=== PATIENT | female | born 1965 | race African-American/Black ===

== ENCOUNTER 2017-01-20 23:59 | Emergency (ER) | payer OTHER ==
[~2017-01-20] VITALS: Ht 162.6 cm; Wt 61.0 kg
[2017-01-21 04:35] LABS: BASOPHILS % 1.2 % (0.0-2.0); DIFFERENTIAL COMMENT 0; EOSINOPHILS % 5.5 % (0.0-5.0); HEMATOCRIT. 34.8 % (36.0-48.0); HEMOGLOBIN. 10.8 g/dL (12.0-16.0); LYMPHOCYTES % 49.4 % (20.0-50.0); MEAN CORPUSCULAR HEMOGLOBIN 22.5 pg (28.0-32.0); MEAN CORPUSCULAR VOLUME 72.7 fL (81.0-99.0); NEUTROPHILS % 29.9 % (40.0-76.0); PLATELET 282 x1000/uL (130-400); RED BLOOD CELL COUNT 4.79 mill/uL (4.2-5.4); RED CELL DISTRIBUTION WIDTH 19.1 % (11.6-14.6); WHITE BLOOD COUNT 4.9 x1000/uL (4.5-11.0)
[2017-01-21 04:40] LABS: CHLORIDE 113 mEq/L (98-107); INDEX HEMOLYSI 1 (1-3); INDEX ICTERIC 1 (1-4); INDEX LIPEMIC 1 (1-3)
[2017-01-21 04:56] LABS: ALBUMIN 3.4 g/dL (3.4-5.0); ANION GAP 13; CALCIUM 8.2 mg/dL (8.5-10.1); CARBON DIOXIDE 22 mEq/L (21-32); ETHANOL BLOOD 232 mg/dL; LIPASE 258 IU/L (73-393); UREA NITROGEN BLOOD 14 mg/dL (7-21); eGFR > 60 mL/min (>60)
[2017-01-21 05:03] LABS: ACETAMINOPHEN < 2 ug/mL (10-30)
[2017-01-21 05:06] LABS: ALANINE AMINOTRANSFERASE 21 IU/L (13-61)
[2017-01-21 07:23] LABS: CLARITY URINE CLEAR (CLEAR); COLOR URINE YELLOW (YELLOW); GLUCOSE URINE NEGATIVE (NEGATIVE); KETONES URINE NEGATIVE (NEGATIVE); LEUKOCYTE ESTERASE URINE NEGATIVE (NEGATIVE); NITRITE URINE NEGATIVE (NEGATIVE); OCCULT BLOOD URINE NEGATIVE (NEGATIVE); PROTEIN URINE NEGATIVE (NEGATIVE); SPECIFIC GRAVITY URINE 1.015 (1.005-1.030); UROBILINOGEN URINE 0.2 E.U./dL (0.2-1.0)
[2017-01-21 07:32] LABS: *AMPHETAMINES SCREEN URINE NEGATIVE (NEGATIVE); *BARBITURATES SCREEN URINE NEGATIVE (NEGATIVE); *BENZODIAZEPINES SCREEN URINE NEGATIVE (NEGATIVE); *COCAINE SCREEN URINE NEGATIVE (NEGATIVE); CANNABINOID URINE SCREEN NEGATIVE (NEGATIVE); ECSTASY MDMA SCREEN URINE NEGATIVE (NEGATIVE); METHADONE URINE SCREEN NEGATIVE (NEGATIVE); OPIATES URINE SCREEN PRESUMTIVE POSITIVE (NEGATIVE); PHENCYCLIDINE URINE SCREEN NEGATIVE (NEGATIVE)
[2017-01-21 08:25] LABS: HCG SCREEN NEGATIVE
[2017-01-21 12:38] VITALS: BP 135/75
== END 2017-01-21 12:41 | disposition home or self-care (01) ==
LOC: ER 01-21 00:14
DX: R45.851 Suicidal ideations (principal); F10.10 Alcohol abuse, uncomplicated; R44.0 Auditory hallucinations; F17.210 Nicotine dependence, cigarettes, uncomplicated
CPT/HCPCS: 36415; 80053; 80305; 80307; 80329; 81003; 83690; 84703; 85025; 99284; G0482

== ENCOUNTER 2017-03-21 02:12 | Emergency (ER) | payer OTHER ==
[~2017-03-21] VITALS: Ht 165.1 cm; Wt 91.0 kg
[2017-03-21] MEDS ORDERED: ONDANSETRON 4MG ODT PO STA (03:21)
[2017-03-21] MEDS ORDERED: FAMOTIDINE 20MG TABLET PO ONE (03:30)
[2017-03-21 03:41] LABS: BASOPHILS % 0.5 % (0.0-2.0); HEMATOCRIT. 30.8 % (36.0-48.0); HEMOGLOBIN. 9.8 g/dL (12.0-16.0); LYMPHOCYTES % 40.4 % (20.0-50.0); MEAN CORPUSCULAR HEMOGLOBIN 21.8 pg (28.0-32.0); MEAN CORPUSCULAR VOLUME 68.9 fL (81.0-99.0); MONOCYTES % 8.8 % (2.0-8.0); NEUTROPHILS % 48.3 % (40.0-76.0); PLATELET 273 x1000/uL (130-400); RED BLOOD CELL COUNT 4.47 mill/uL (4.2-5.4); RED CELL DISTRIBUTION WIDTH 19.2 % (11.6-14.6)
[2017-03-21 03:44] LABS: PLATELET ESTIMATE NORMAL
[2017-03-21 03:55] LABS: CARBON DIOXIDE 23 mEq/L (21-32); CHLORIDE 109 mEq/L (98-107); ETHANOL BLOOD 136 mg/dL
[2017-03-21 04:39] LABS: CLARITY URINE CLEAR (CLEAR); COLOR URINE YELLOW (YELLOW); GLUCOSE URINE NEGATIVE (NEGATIVE); KETONES URINE NEGATIVE (NEGATIVE); LEUKOCYTE ESTERASE URINE NEGATIVE (NEGATIVE); NITRITE URINE NEGATIVE (NEGATIVE); OCCULT BLOOD URINE NEGATIVE (NEGATIVE); PROTEIN URINE NEGATIVE (NEGATIVE); SPECIFIC GRAVITY URINE 1.009 (1.005-1.030); UROBILINOGEN URINE 0.2 E.U./dL (0.2-1.0)
[2017-03-21] MEDS ORDERED: ONDANSETRON 4MG ODT ONE (04:53)
[2017-03-21] MEDS ORDERED: FAMOTIDINE 20MG TABLET ONE (04:54)
[2017-03-21 05:55] LABS: *AMPHETAMINES SCREEN URINE NEGATIVE (NEGATIVE); *BARBITURATES SCREEN URINE NEGATIVE (NEGATIVE); *BENZODIAZEPINES SCREEN URINE PRESUMTIVE POSITIVE (NEGATIVE); *COCAINE SCREEN URINE NEGATIVE (NEGATIVE); CANNABINOID URINE SCREEN NEGATIVE (NEGATIVE); METHADONE URINE SCREEN NEGATIVE (NEGATIVE); OPIATES URINE SCREEN NEGATIVE (NEGATIVE); PHENCYCLIDINE URINE SCREEN NEGATIVE (NEGATIVE)
[2017-03-21 09:00] VITALS: BP 129/71
== END 2017-03-21 09:05 | disposition home or self-care (01) ==
LOC: ER 02:12
DX: F10.129 Alcohol abuse with intoxication, unspecified (principal); R10.84 Generalized abdominal pain; F20.9 Schizophrenia, unspecified
CPT/HCPCS: 36415; 80053; 80305; 81003; 83690; 85025; 99284; G0482; Q0162

== ENCOUNTER 2020-01-28 21:50 | Emergency (ER) | payer OTHER ==
[~2020-01-28] VITALS: Ht 165.1 cm; Wt 116.0 kg
[2020-01-29 01:12] LABS: BASOPHILS % 0.7 % (0.0-2.0); EOSINOPHILS % 4.9 % (0.0-5.0); HEMATOCRIT. 35.9 % (36.0-48.0); HEMOGLOBIN. 11.6 g/dL (12.0-16.0); LYMPHOCYTES % 40.2 % (20.0-50.0); MEAN CORPUSCULAR HEMOGLOBIN 24.9 pg (28.0-32.0); MEAN CORPUSCULAR VOLUME 77.5 fL (81.0-99.0); MONOCYTES % 9.3 % (2.0-8.0); NEUTROPHILS % 44.9 % (40.0-76.0); PLATELET 300 x1000/uL (130-400); RED BLOOD CELL COUNT 4.63 mill/uL (4.2-5.4); RED CELL DISTRIBUTION WIDTH 18.4 % (11.6-14.6)
[2020-01-29 01:12] LABS: CLARITY URINE CLEAR (CLEAR); COLOR URINE YELLOW (YELLOW); KETONES URINE NEGATIVE (NEGATIVE); LEUKOCYTE ESTERASE URINE NEGATIVE (NEGATIVE); NITRITE URINE NEGATIVE (NEGATIVE); OCCULT BLOOD URINE NEGATIVE (NEGATIVE); PROTEIN URINE NEGATIVE (NEGATIVE); SPECIFIC GRAVITY URINE 1.005 (1.005-1.030); UROBILINOGEN URINE 0.2 E.U./dL (0.2-1.0)
[2020-01-29 01:18] LABS: CHLORIDE 110 mEq/L (98-107)
[2020-01-29 01:22] LABS: ETHANOL BLOOD 232 mg/dL
[2020-01-29 01:23] LABS: *BARBITURATES SCREEN URINE NEGATIVE (NEGATIVE)
[2020-01-29 01:24] LABS: *AMPHETAMINES SCREEN URINE NEGATIVE (NEGATIVE); *BENZODIAZEPINES SCREEN URINE NEGATIVE (NEGATIVE); *COCAINE SCREEN URINE NEGATIVE (NEGATIVE); METHADONE URINE SCREEN NEGATIVE (NEGATIVE); OPIATES URINE SCREEN NEGATIVE (NEGATIVE); PHENCYCLIDINE URINE SCREEN NEGATIVE (NEGATIVE)
[2020-01-29 01:25] LABS: CANNABINOID URINE SCREEN NEGATIVE (NEGATIVE)
[2020-01-29 01:28] LABS: HCG SCREEN NEGATIVE
[2020-01-29] MEDS ORDERED: SODIUM CHLORIDE 0.9% 1,000 ML IV ONE (02:00)
[2020-01-29 08:00] VITALS: BP 128/76
== END 2020-01-29 08:00 | disposition home or self-care (01) ==
LOC: ER 21:50
DX: F10.129 Alcohol abuse with intoxication, unspecified (principal); Y90.7 Blood alcohol level of 200-239 mg/100 ml
CPT/HCPCS: 36415; 80053; 80305; 80307; 80320; 80329; 81003; 81025; 84703; 85025; 99285; G0480

== ENCOUNTER 2020-03-23 03:47 | Emergency (ER) | payer OTHER ==
[~2020-03-23] VITALS: Ht 165.1 cm; Wt 90.7 kg
[2020-03-23] MEDS ORDERED: IBUPROFEN 600MG TABLET PO STA (04:07)
[2020-03-23 05:23] LABS: BASOPHILS % 0.7 % (0.0-2.0); EOSINOPHILS % 7.1 % (0.0-5.0); HEMATOCRIT. 36.1 % (36.0-48.0); HEMOGLOBIN. 11.9 g/dL (12.0-16.0); LYMPHOCYTES % 27.1 % (20.0-50.0); MEAN CORPUSCULAR HEMOGLOBIN 24.8 pg (28.0-32.0); MEAN CORPUSCULAR VOLUME 74.8 fL (81.0-99.0); MEAN PLATELET VOLUME 10.5 fl (7.4-10.4); NEUTROPHILS % 59.1 % (40.0-76.0); PLATELET 299 x1000/uL (130-400); RED BLOOD CELL COUNT 4.82 mill/uL (4.2-5.4); RED CELL DISTRIBUTION WIDTH 19.5 % (11.6-14.6)
[2020-03-23 05:24] LABS: CLARITY URINE CLEAR (CLEAR); COLOR URINE YELLOW (YELLOW); KETONES URINE NEGATIVE (NEGATIVE); LEUKOCYTE ESTERASE URINE 2+ (NEGATIVE); NITRITE URINE NEGATIVE (NEGATIVE); OCCULT BLOOD URINE NEGATIVE (NEGATIVE); PROTEIN URINE NEGATIVE (NEGATIVE); UROBILINOGEN URINE 0.2 E.U./dL (0.2-1.0)
[2020-03-23 05:32] LABS: CHLORIDE 104 mEq/L (98-107)
[2020-03-23 05:36] LABS: ETHANOL BLOOD 216 mg/dL
[2020-03-23 05:39] LABS: *AMPHETAMINES SCREEN URINE NEGATIVE (NEGATIVE); *BARBITURATES SCREEN URINE NEGATIVE (NEGATIVE); *BENZODIAZEPINES SCREEN URINE NEGATIVE (NEGATIVE); *COCAINE SCREEN URINE NEGATIVE (NEGATIVE); CANNABINOID URINE SCREEN NEGATIVE (NEGATIVE); OPIATES URINE SCREEN NEGATIVE (NEGATIVE); PHENCYCLIDINE URINE SCREEN NEGATIVE (NEGATIVE)
[2020-03-23 05:40] LABS: METHADONE URINE SCREEN NEGATIVE (NEGATIVE)
[2020-03-23] MEDS: SULFAMETHOXAZOLE/TRIMETHOPRIM 800/160MG TABLET PO SCH ×2 (10:15→21:00)
[2020-03-23 21:58] VITALS: BP 143/79
== END 2020-03-23 22:30 ==
LOC: ER 03:59
DX: F20.9 Schizophrenia, unspecified (principal); R45.851 Suicidal ideations; N39.0 Urinary tract infection, site not specified; R07.89 Other chest pain; I10 Essential (primary) hypertension; Z75.1 Person awaiting admission to adequate facility elsewhere; Z59.0 Homelessness
CPT/HCPCS: 36415; 71045; 80048; 80305; 80307; 80320; 80329; 81003; 84484; 85025; 99285; G0480

== ENCOUNTER 2020-05-26 04:00 | Emergency (ER) | payer OTHER ==
[~2020-05-26] VITALS: Ht 165.1 cm; Wt 91.0 kg
[2020-05-26 13:44] VITALS: BP 145/88
== END 2020-05-26 13:41 | disposition home or self-care (01) ==
LOC: ER 04:13
DX: S09.8XXA Other specified injuries of head, initial encounter (principal); M54.89 Other dorsalgia; F31.9 Bipolar disorder, unspecified; F20.9 Schizophrenia, unspecified; W01.0XXA Fall on same level from slipping, tripping and stumbling without subsequent striking against object, initial encounter; Y93.89 Activity, other specified; Y92.89 Other specified places as the place of occurrence of the external cause
CPT/HCPCS: 71045; 99284

== ENCOUNTER 2020-06-22 16:09 | Emergency (ER) | payer OTHER ==
[~2020-06-22] VITALS: Ht 170.2 cm; Wt 87.0 kg
[2020-06-22 18:17] LABS: BASOPHILS % 0.3 % (0.0-2.0); EOSINOPHILS % 0.7 % (0.0-5.0); HEMOGLOBIN. 11.7 g/dL (12.0-16.0); LYMPHOCYTES % 16.4 % (20.0-50.0); MEAN CORPUSCULAR HEMOGLOBIN 24.7 pg (28.0-32.0); MEAN PLATELET VOLUME 10.9 fl (7.4-10.4); MONOCYTES % 8.8 % (2.0-8.0); NEUTROPHILS % 73.8 % (40.0-76.0); PLATELET 211 x1000/uL (130-400); RED BLOOD CELL COUNT 4.74 mill/uL (4.2-5.4); RED CELL DISTRIBUTION WIDTH 20.4 % (11.6-14.6)
[2020-06-22 18:26] LABS: CHLORIDE 108 mEq/L (98-107)
[2020-06-22 18:29] LABS: ETHANOL BLOOD 99 mg/dL
[2020-06-22] MEDS ORDERED: SODIUM CHLORIDE 0.9% 1,000 ML IV ONE (18:45)
[2020-06-22] MEDS ORDERED: FOLIC ACID 1 MG, THIAMINE HCL 100 MG, MVI, ADULT NO.1 10 ML in DEXTROSE 5% WATER 1,000 ML IV ONE ×4 (19:30)
[2020-06-23 06:34] VITALS: BP 125/71
== END 2020-06-23 06:41 | disposition home or self-care (01) ==
LOC: ER 16:09
DX: F10.129 Alcohol abuse with intoxication, unspecified (principal); E87.2 Acidosis; R03.0 Elevated blood-pressure reading, without diagnosis of hypertension; F20.9 Schizophrenia, unspecified; F31.9 Bipolar disorder, unspecified; Y90.4 Blood alcohol level of 80-99 mg/100 ml
CPT/HCPCS: 36415; 70450; 80048; 80053; 80320; 83605; 85025; 87040; 93005; 96361; 96365; 96366; 99285; J3411; J3490; J7070; G0480

== ENCOUNTER 2020-06-24 11:40 | Emergency (ER) | payer OTHER ==
[~2020-06-24] VITALS: Ht 167.6 cm; Wt 90.0 kg
[2020-06-24] MEDS ORDERED: IBUPROFEN 600MG TABLET PO STA (12:24)
[2020-06-24 13:02] LABS: BASOPHILS % 0.9 % (0.0-2.0); HEMATOCRIT. 37.6 % (36.0-48.0); HEMOGLOBIN. 12.1 g/dL (12.0-16.0); LYMPHOCYTES % 22.9 % (20.0-50.0); MEAN CORPUSCULAR HEMOGLOBIN 24.6 pg (28.0-32.0); MEAN CORPUSCULAR VOLUME 76.7 fL (81.0-99.0); MEAN PLATELET VOLUME 10.3 fl (7.4-10.4); MONOCYTES % 9.9 % (2.0-8.0); NEUTROPHILS % 62.3 % (40.0-76.0); PLATELET 233 x1000/uL (130-400); RED CELL DISTRIBUTION WIDTH 20.1 % (11.6-14.6)
[2020-06-24 13:07] LABS: CHLORIDE 112 mEq/L (98-107)
[2020-06-24 13:12] LABS: ETHANOL BLOOD 180 mg/dL
[2020-06-24 14:08] LABS: CLARITY URINE CLEAR (CLEAR); COLOR URINE YELLOW (YELLOW); KETONES URINE NEGATIVE (NEGATIVE); LEUKOCYTE ESTERASE URINE TRACE (NEGATIVE); NITRITE URINE NEGATIVE (NEGATIVE); OCCULT BLOOD URINE NEGATIVE (NEGATIVE); PROTEIN URINE NEGATIVE (NEGATIVE); SPECIFIC GRAVITY URINE 1.016 (1.005-1.030); UROBILINOGEN URINE 0.2 E.U./dL (0.2-1.0)
[2020-06-24 14:24] LABS: *AMPHETAMINES SCREEN URINE NEGATIVE (NEGATIVE); *BARBITURATES SCREEN URINE NEGATIVE (NEGATIVE); *BENZODIAZEPINES SCREEN URINE PRESUMTIVE POSITIVE (NEGATIVE)
[2020-06-24 14:25] LABS: *COCAINE SCREEN URINE NEGATIVE (NEGATIVE); CANNABINOID URINE SCREEN NEGATIVE (NEGATIVE); METHADONE URINE SCREEN NEGATIVE (NEGATIVE); OPIATES URINE SCREEN NEGATIVE (NEGATIVE); PHENCYCLIDINE URINE SCREEN NEGATIVE (NEGATIVE)
[2020-06-24 15:00] VITALS: BP 130/72
== END 2020-06-24 15:10 | disposition home or self-care (01) ==
LOC: ER 11:40
DX: M54.5 Low back pain (principal); I49.9 Cardiac arrhythmia, unspecified
CPT/HCPCS: 36415; 80053; 80305; 80320; 81003; 85025; 93005; 99284; G0480